=== PATIENT | female | born 1975 | race Asian ===

== ENCOUNTER 2017-02-09 19:11 | Emergency (ER) | payer SELFPAY ==
--- NOTE | 2017-02-09 20:30 | RADIOLOGY REPORT (SQ) ---
EXAM DESCRIPTION: FINGER LEFT COMPLETED DATE/TIME: 02/09/2017 8:16 pm REASON FOR STUDY: pinky injury COMPARISON: None. NUMBER OF VIEWS: Three views. TECHNIQUE: AP, lateral, and oblique images acquired of the left fifth finger. LIMITATIONS: None. FINDINGS: MINERALIZATION: Normal. BONES: There is some cortical irregularity involving the distal end of the distal phalanx of the 5th digit which I cannot exclude is a fracture. No other evidence for fracture is seen. SOFT TISSUES: There is soft tissue injury. OTHER: No other significant finding. IMPRESSION: Cortical irregularity involving the distal end of the distal phalanx of the 5th digit wh ich I cannot exclude as a fracture. No other evidence for fracture is seen COMMENT: SITE OF TRAUMA/COMPLAINT MARKED/STAMP COMPLETED: No TECHNICAL DOCUMENTATION: JOB ID: [id number] [employer]- All Rights Reserved
[2017-02-09] MEDS ORDERED: LIDOCAINE 1% INJ-PF (10 MG/ML) 30 ML SDV INJ ONE (22:20)
--- NOTE | 2017-02-09 22:21 | ER Document Report ---
HPI - HPI Patient complains to provider of: left 5ht finger injury Pain Level: 5 Context: 41-year-old female had a wood that kicked back and hit her distal left fingertip at 7:30 PM. She is not sure she needs a stitches. Tetanus Is current. - REPRODUCTIVE LMP: 01/22/2017 Reproductive: DENIES: : - DERM Skin Color: Normal Past Medical History - General Information source: Patient - Social History Smoking Status: Unknown if Ever Smoked Frequency of alcohol use: None Drug Abuse: None Lives with: Spouse/Significant other Family History: Arthritis, CAD, CVA, DM, Hyperlipidemia, Hypertension, Malignancy - Past Medical History Cardiac Medical History: Reports: Hx Hypercholesterolemia, Hx Hypertension Pulmonary Medical History: Reports: Hx Asthma, Hx Bronchitis, Hx COPD, Hx Pneumonia Renal/ Medical History: Denies: Hx Peritoneal Dialysis Musculoskeltal Medical History: Reports Hx Arthritis, Reports Hx Musculoskeletal Deformity, Reports Hx Musculoskeletal Trauma Psychiatric Medical History: Reports: Hx Attention Deficit Hyperactivity Disorder, Hx Bipolar Disorder Traumatic Medical History: Reports: Hx Fractures - ribs Past Surgical History: Reports: Hx Appendectomy - 02/28/13 - Immunizations Immunizations up to date: Yes Hx Diphtheria, Pertussis, Tetanus Vaccination: Yes Vertical Provider Document - CONSTITUTIONAL Agree With Documented VS: Yes Exam Limitations: No Limitations General Appearance: No Apparent Distress - INFECTION CONTROL TRAVEL OUTSIDE OF THE [place] IN LAST 30 DAYS: No - HEENT HEENT: Atraumatic - NECK Neck: Supple - RESPIRATORY O2 Sat by Pulse Oximetry: 96 - MUSCULOSKELETAL/EXTREMETIES Musculoskeletal/Extremeties: MAEW, FROM, Tender - NEURO Level of Consciousness: Awake, Alert - DERM Integumentary: Warm, Dry, Laceration - distal left 5th finger Course - Re-evaluation Re-evalutation: 02/10/17 00:02 radiologist read the x-ray is a cortical irregularity distal phalanx of the left fifth finger, he cannot exclude a fracture so I have splinted it and treated it as an open fracture with cephalexin and referral to orthopedics I explained this to the patient. the lacerations are linear, superficial full thickness to subq tissue, no tendon or bone exposure, FROM, 02/10/17 00:04 - Vital Signs Vital signs: Temp Pulse Resp BP Pulse Ox 98.6 F 89 127/73 H 96 02/09/17 19:27 02/09/17 19:27 02/09/17 19:27 02/09/17 19:27 Procedures - Laceration/Wound Repair Left 5th digit Time completed: 00:06 Wound length (cm): 2.5 - 3 separate linear lacerations Wound's Depth, Shape: Superficial - to sub q only, no tendon or bone exposure, no flap, Linear Laceration pre-procedure: Other - ultradex scrub Anesthetic type: 1% Lidocaine Volume Anesthetic (mLs): 3 - digital block Wound explored: Clean Irrigated w/ Saline (mLs): 60 Number of Sutures: 0 Post-procedure NV exam normal: Yes Complications: No - suturing not indicated Discharge - Discharge Clinical Impression: left distal 5th Finger lacerations, possible fracture distal phalanx Condition: Good Disposition: HOME, SELF-CARE Instructions: Hand Laceration ([facility]), Use of [id number] Ibuprofen ([facility]), Fractured Finger ([facility]), Temporary Splint ([facility]), Cephalexin ([facility]) Additional Instructions: keep clean and dry/covered bacitracin to er any concerns non stick dressing orthopedic referral splint to protect the finger Prescriptions: Cephalexin Monohydrate [Keflex 500 mg Capsule] 500 mg PO QID #20 capsule Referrals: SHRUTI CHEN DO [ACTIVE STAFF] - Follow up in 3-5 days
[2017-02-09] MEDS ORDERED: IBUPROFEN 800 MG TABLET PO ONE (23:41)
[2017-02-10] MEDS ORDERED: CEPHALEXIN 500 MG CAPSULE PO ONE (00:03)
[2017-02-10 00:17] VITALS: BP 124/70
== END 2017-02-10 00:19 | disposition home or self-care (01) ==
LOC: ER 19:11
PROC: 0HQGXZZ Repair Left Hand Skin, External Approach (ICD-10-PCS; principal; 2017-02-09)
DX: S61.217A Laceration without foreign body of left little finger without damage to nail, initial encounter (principal); W22.8XXA Striking against or struck by other objects, initial encounter; E78.00 Pure hypercholesterolemia, unspecified; I10 Essential (primary) hypertension; J44.9 Chronic obstructive pulmonary disease, unspecified
CPT/HCPCS: 12001; 99283; 73140; J3490